=== PATIENT | female | born 1980 | race Caucasian/White ===

== ENCOUNTER 2016-05-15 20:45 | Emergency (ER) | payer BC ==
--- NOTE | 2016-05-15 21:00 | EDM.PDOC ---
ED HPI Trauma - General Chief Complaint: Lower Extremity Injury/Pain Stated Complaint: FELL OFF TRAMPOLINE AND HURT RIGHT LEG Source: Reports: Patient History Limitations: Reports: No limitations - History of Present Illness INITIAL COMMENTS - FREE TEXT/NARRATIVE: HISTORY AND PHYSICAL: History of present illness: [36-year-old female with a past medical history of type 2 diabetes and flat with metformin now came to the emergency department complaining of right leg pain after jumping off a trampoline. Patient was jumping on trampoline with her child instead of sitting down to get off she jumped to the ground. Upon impact she felt discomfort in the lateral aspect of her right leg just below her right knee. Pain persisted and makes it very uncomfortable to bear weight. Denies ankle pain or injury. Patient does not think her knee thigh or hip are involved she has no pain in these locations. no other complaint or injury] Review of systems: As per history of present illness and below otherwise all systems reviewed and negative. Past medical history: As per history of present illness and as reviewed below otherwise noncontributory. Surgical history: As per history of present illness and as reviewed below otherwise noncontributory. Social history: No reported history of drug or alcohol abuse. Family history: As per history of present illness and as reviewed below otherwise noncontributory. Physical exam: HEENT: Atraumatic, normocephalic, negative for conjunctival pallor or scleral icterus, mucous membranes moist, neck supple, nontender, trachea midline. Lungs: Normal and symmetrical chest wall excursion with respiration Heart: No tachycardia per triage vitals Abdomen: nondistended, Pelvis: Stable nontender. Genitourinary: Deferred. Rectal: Deferred. Extremities: Tenderness lateral leg proximal aspect below the knee in the distribution of the proximal fibula. No ecchymosis. No bony crepitus. No deformity. Distal leg ankle and foot all nontender and unremarkable. No knee effusion appreciable. No bony tenderness of the femoral distribution and no hip tenderness nontender stable pelvis Extremities otherwise Atraumatic, negative for cords or calf pain. Neurovascular unremarkable. Ankle dorsiflexion intact with normal common peroneal nerve function Neuro: Awake, alert, oriented. Cranial nerves grossly unremarkable. Cerebellum unremarkable. Motor and sensory unremarkable throughout. Exam nonfocal. Diagnostics: [] Therapeutics: [] Impression: [] Plan: [Signs and symptoms consistent with possible proximal fibular fracture versus knee sprain. Dorsiflexion of ankle intact with normal range of motion ankle and foot. No clinical evidence of common peroneal nerve injury. Soft compartments neurovascularly intact distally. X-rays right knee and tib-fib pending. Toradol IM, ice pack applied X-ray shows bony abnormality proximal fibula in the distribution of the bony tenderness. In the setting of this clinical presentation cannot rule out fracture. Case discussed with Eve Alatorre orthopedics correction officer [facility]. Dr. Alatorre is aware of the history and findings and recommends knee immobilizer crutches nonweightbearing until followup in our office. As you aware critical importance of close followup no further workup or treatment indicated at this time patient agrees with outpatient followup. Strict return precautions given Definitive disposition and diagnosis as appropriate pending reevaluation and review of above. Allergies/ADRs: Allergies No Known Allergies Allergy (Verified 05/15/16 20:57) Home Medications: Ambulatory Orders Albuterol Sulfate [Albuterol Sulfate HFA] 2 puff INH ASDIRECTED 04/16/14 [ Confirmed 05/15/16] Albuterol [Ventolin HFA] 2 puff INH ASDIRECTED PRN 04/16/14 [Confirmed 05/15/16] Cyclobenzaprine [Flexeril] 10 mg PO DAILY 05/15/16 [Confirmed 05/15/16] Hydrocodone/Acetaminophen [[place] 5-325 Tablet] 1 each PO Q4H PRN #16 tablet 08/24 metFORMIN [Glucophage XR] 500 mg pe PO DAILY 05/15/16 [Confirmed 05/15/16] Social & Family History - Tobacco Use Smoking Status *Q: Current Every Day Smoker Years of Tobacco use: 14 - Alcohol Use Days Per Week of Alcohol Use: 0 Number of Drinks Per Day: 0 Total Drinks Per Week: 0 - Recreational Drug Use Recreational Drug Use: No Drug Use in Last 12 Months: No Review of Systems - Review of Systems Review Of Systems: See Below (History of present illness) Trauma Exam - Physical Exam Exam: See Below (History of present illness) Course - Vital Signs Last Recorded V/S: Last Vital Signs Temp 37.3 C 05/15/16 23:15 Pulse 76 05/15/16 23:15 Resp 18 05/15/16 23:15 BP 129/69 05/15/16 23:15 Pulse Ox 96 05/15/16 23:15 - Orders/Labs/Meds Orders: Active Orders 24 hr Category Date Time Status Knee 3V Rt [CR] Stat Exams 05/15/16 21:06 Taken Tibia Fibula Rt [CR] Stat Exams 05/15/16 21:06 Taken Meds: Medications Discontinued Medications Generic Name Dose Route Start Last Admin Trade Name Freq PRN Reason Stop Dose Admin Hydrocodone Bitart/Acetaminophen 1 tab 05/15/16 22:51 05/15/16 23:10 [place] 325-5 Mg PO 05/15/16 22:52 1 tab ONETIME ONE Administration Ketorolac Tromethamine 60 mg 05/15/16 22:52 05/15/16 23:08 Toradol IM 05/15/16 22:53 60 mg ONETIME ONE Administration Departure - Departure Time of Disposition: 22:54 Disposition: Home, Self-Care 01 Condition: good Clinical Impression: Fracture, fibula, proximal Prescriptions: Hydrocodone/Acetaminophen [[place] 5-325 Tablet] 1 each PO Q4H PRN #16 tablet PRN Reason: Breakthrough pain Instructions: Crutch Use, [id number], Knee Immobilizer, [id number] Referrals: Caitlin Pineda MD [Physician] - Steven Mukherjee MD [Primary Care Provider] - Forms: ED Department Discharge Additional Instructions: The following information is given to patients seen in the emergency department who are being discharged to home. This information is to outline your options for follow-up care. We provide all patients seen in our emergency department with a follow-up referral. The need for follow-up, as well as the timing and circumstances, are variable depending upon the specifics of your emergency department visit. If you don't have a primary care physician on staff, we will provide you with a referral. We always advise you to contact your personal physician following an emergency department visit to inform them of the circumstance of the visit and for follow-up with them and/or the need for any referrals to a consulting specialist. The emergency department will also refer you to a specialist when appropriate. This referral assures that you have the opportunity for follow-up care with a specialist. All of these measure are taken in an effort to provide you with optimal care, which includes your follow-up. Under all circumstances we always encourage you to contact your private physician who remains a resource for coordinating your care. When calling for follow-up care, please make the office aware that this follow-up is from your recent emergency room visit. If for any reason you are refused follow-up, please contact the [facility] Emergency Department at and asked to speak to the emergency department charge nurse. It appears that you have a small fracture of your proximal fibula. Wear knee immobilizer and use crutches with nonweightbearing status until followup with Dr. Pineda the orthopedic doctor Wednesday 1 PM. No need to call for an appointment , Dr. Pineda will already be expecting you at that time. Take ibuprofen 800 mg every 6 hours and [place] as needed for pain. Rest ice and elevate whenever possible for the first day or 2. He may remove the knee immobilizer to shower or sleep and then replace it. Remove it several times a day to range of motion the knee as tolerated, but do not walk or put weight on it - My Orders Last 24 Hours: My Active Orders 05/15/16 21:06 Knee 3V Rt [CR] Stat Tibia Fibula Rt [CR] Stat - Assessment/Plan Last 24 Hours: My Active Orders 05/15/16 21:06 Knee 3V Rt [CR] Stat Tibia Fibula Rt [CR] Stat
[2016-05-15] MEDS ORDERED: Acetaminophen/HYDROcodone 325-5 MG Tab PO ONE (22:51)
[2016-05-15] MEDS ORDERED: Ketorolac 60 MG/2 ML SDV IM ONE (22:52)
[2016-05-15 23:20] VITALS: BP 129/69
--- NOTE | 2016-05-18 10:19 | CR ---
EXAM DATE: 05/15/16 PATIENT'S AGE: 36 Patient: HERMES HESTER Facility: [place], [place] Site . Site : 1980 Study: XRay Extremity Right TibFib [id number]/7/2017 9:29:39 PM Ordering Physician: Doctor Galvan Final Report: Indication: Injury Technique: Three views of the right tibia and fibula Comparison: None available Findings: Bones: A curvilinear calcification along the medial aspect of the proximal fibula is of unclear chronicity. No dislocation. Joint spaces: Unremarkable. Soft tissues: A small ovoid calcification anterior to the tibial tuberosity. Impression: A curvilinear calcific density adjacent to the proximal fibula is of unclear chronicity. An acute fracture is not excluded. Correlate for focal tenderness and followup. Dictated by Tyson Mahmood MD @ 05/15/2016 10:02:12 PM Dictated by: Tyson Mahmood MD @ 05/15/2016 22:02:15 (Electronic Signature) Report Signed by Proxy and Original Signed Document filed in the Medical Record. [email or web address]
--- NOTE | 2016-05-18 10:19 | CR ---
EXAM DATE: 05/15/16 PATIENT'S AGE: 36 Patient: HERMES HESTER Facility: [place], [place] Site . Site : 1980 Study: XRay Knee Right [id number]/7/2017 9:30:00 PM Ordering Physician: Doctor Galvan Final Report: Indication: Injury Technique: Three views of the right knee Comparison: None available Findings: Bones: A curvilinear calcification adjacent to the proximal fibula, as seen on the tibia-fibula series, of unclear chronicity. No dislocation. Joint spaces: Unremarkable. Soft tissues: Unremarkable. Impression: A curvilinear calcification adjacent to the proximal fibula is of unclear chronicity and an acute fracture is not excluded. Correlate clinically and followup. Dictated by Tyson Mahmood MD @ 05/15/2016 10:04:10 PM Dictated by: Tyson Mahmood MD @ 05/15/2016 22:04:21 (Electronic Signature) Report Signed by Proxy and Original Signed Document filed in the Medical Record. MTDD
== END 2016-05-15 23:15 | disposition home or self-care (01) ==
LOC: MW.ED 20:45
DX: S82.831A Other fracture of upper and lower end of right fibula, initial encounter for closed fracture (principal); F17.200 Nicotine dependence, unspecified, uncomplicated; X58.XXXA Exposure to other specified factors, initial encounter
CPT/HCPCS: 73562; 73590; 99283; A9270; J1885

== ENCOUNTER → 2016-05-21 | Outpatient (CLI) | payer BC | END | disposition home or self-care (01) | LOC: MW.CHPOD 09:03 | PROVIDERS: ATTEND Internal Medicine | DX: E11.9 Type 2 diabetes mellitus without complications (principal) | CPT/HCPCS: 36415; 83036 ==